=== PATIENT | male | born 1995 | race Caucasian/White ===

== ENCOUNTER 2018-11-24 10:55 | Day surgery (SDC) | payer OTHER ==
[~2018-11-24] VITALS: Ht 162.6 cm; Wt 70.0 kg
[2018-11-24] VITALS (12 sets, daily range): BP systolic 90–114; BP diastolic 49–66; PULSE 56–67; RESP 14–30; Ht 162.6 cm; Wt 70.0 kg
--- NOTE | 2018-11-24 08:37 | HPN ---
Date/Time of Note Date/Time of Note DATE: 11/24/18 TIME: 08:37 Interval H&P Admission Note Pt. seen H&P reviewed: No system changes KIMO BECK MD Nov 24, 2018 08:37
[~2018-11-24 10:55] MED LIST: CEFAZOLIN 1 GM INJ ONE
--- NOTE | 2018-11-24 12:16 | PREAC ---
Date/Time of Note Date/Time of Note DATE: 11/24/18 TIME: 12:14 Anesthesia Eval and Record Evaluation Time Pre-Procedure Interview DATE: 11/24/18 TIME: 12:14 Age 23 Sex male NPO: 8 hrs Preoperative diagnosis right scrotal/genital abnormality Planned procedure revision and repair right orchiopexy Past Medical History Past Medical History: None Surgery & Anesthesia Issues No known issue Meds Anticoagulation: No Beta Saima within 24 hr: No Reason Beta Saima not given: Pt. not on B-Saima No Active Prescriptions or Reported Meds Meds reviewed: Yes Allergies Coded Allergies: No Known Allergy (Unverified , 11/24/18) Allergies Reviewed: Yes Labs/Studies Labs Reviewed: Reviewed by anesthesiologist test: N/A Pre-procedure Exam Last vitals Vital Signs Date Temp Pulse Resp B/P (MAP) Pulse Ox O2 O2 Flow FiO2 Time Delivery Rate 11/24/18 98.7 67 14 114/65 97 Room Air 11:29 (81) Airway: Adequate mouth opening, Adequate thyromental dist Mallampati: Mallampati I Teeth: Normal Lung: Normal Heart: Normal ASA Physical Status ASA physical status: 1 Emergency: None Planned Anesthetic General/MAC: LMA Planned Pain Management Parenteral pain med Pre-operative Attestations Prior to commencing anesthesia and surgery, the patient was re-evaluated, there was verification of: *The patient's identity *The results of appropriate recent lab work and preoperative vital signs *The above evaluation not changing prior to induction *Anesthetic plan, risk benefits, alternative and complications discussed with patient/family; questions answered; patient/family understands, accepts and wishes to proceed. KEZIA ROMERO Nov 24, 2018 12:16
[2018-11-24] MEDS ORDERED: BUPIVACAINE 0.25% (MPF) 30 ML INJ ONE (12:21)
[2018-11-24] MEDS ORDERED: PROPOFOL 20 ML ONE (12:34)
[2018-11-24] MEDS ORDERED: ROCURONIUM 50 MG INJ ONE (12:38)
[2018-11-24] MEDS ORDERED: BUPIVACAINE 0.5% (SDV) 30 ML INJ ONE (12:42)
[2018-11-24] MEDS ORDERED: NEOMYC/POLYMYX/BACIT 30 GM OINT ONE (13:13)
[2018-11-24] MEDS ORDERED: DEXAMETHASONE 4 MG/ML 5 ML INJ ONE (13:18)
[2018-11-24] MEDS ORDERED: ONDANSETRON 4 MG INJ ONE (13:19)
[2018-11-24] MEDS ORDERED: NEOSTIGMINE 3 MG/3 ML SYRINGE ONE (13:25)
[2018-11-24] MEDS ORDERED: GLYCOPYRROLATE 0.4 MG INJ ONE (13:25)
--- NOTE | 2018-11-24 13:40 | PAC ---
Date/Time of Note Date/Time of Note DATE: 11/24/18 TIME: 13:39 Post-Anesthesia Notes Post-Anesthesia Note Last documented vital signs Vital Signs Date Temp Pulse Resp B/P (MAP) Pulse Ox O2 O2 Flow FiO2 Time Delivery Rate 11/24/18 99.3 78 105/62 98 13:37 11/24/18 67 14 114/65 97 Room Air 11:29 (81) Activity: WNL Respiratory function: WNL Cardiovascular function: WNL Mental status: Baseline Pain reasonably controlled: Yes Hydration appropriate: Yes Nausea/Vomiting absent: Yes KEZIA ROMERO Nov 24, 2018 13:40
--- NOTE | 2018-11-24 13:43 | OPR ---
Date/Time of Note Date/Time of Note DATE: 11/24/18 TIME: 13:34 Operative Report Procedure Date: Nov 24, 2018 Preoperative Diagnosis Status post right orchiopexy at age 10. The wound did not heal well. He has a 2-3 cm area where the testicle is exposed and not covered by scrotal skin Postoperative Diagnosis Same Operation/Procedure Performed Repair and revision of right orchiopexy Surgeon see signature line Hospitalist Nocturnist Physician bicycle service technician Anesthesia Type: general Anesthesiologist: KEZIA ROMERO Estimated Blood Loss: 0 - 10 ml's Transfusion none Specimen None Grafts/Implants none Complications none Pt Condition Post Procedure: stable Disposition: PACU Indications Exposed right testicle without scrotal skin covering secondary to right orchiope xy at age 10. Procedure Description The patient was brought to the operating room and given general anesthesia. Timeout was done and the patient was identified by his name, the procedure and the side of the procedure. He was given 2 g of Ancef IV at the start of the procedure. The genital area ,upper thighs and lower abdomen were all prepped and draped in the usual sterile manner. The area where the testicle was exposed had also a skin bridge that had to be opened and then electrocoagulated. I then dissected the scrotal skin of the testicle and went all around the exposed area. Care was taken not to cut into the testicle itself. I stayed subcutaneous and had good clearing of all the attachments and edges. After all of that I did excise the edges of the scrotal skin to freshen the edges. Then I approximated the subcutaneous tissue using 4-0 Vicryl interrupted sutures and that did cover the testicle as a first layer. Then I approximated the scrotal skin with 4-0 Vicryl interrupted sutures as well and that constituted a second layer covering the testicle. I did inject half percent Marcaine around the incision for local analgesia. The incision which at the end measured about 5 cm was covered with triple antibiotic ointment and a piece of Telfa. A fluff dressing was put on the top of that and that was held in place with a scrotal support. The patient tolerated the procedure well and was transferred to the recovery room in a stable and satisfactory condition. KIMO BECK MD Nov 24, 2018 13:43
[2018-11-24] MEDS ORDERED: MEPERIDINE 25 MG INJ IV PRN (14:00)
[2018-11-24] MEDS ORDERED: HYDROCODONE/APAP (5/325) TAB PO PRN (14:00)
[2018-11-24] MEDS ORDERED: LABETALOL HCL 20MG INJ IV PRN (14:00)
[2018-11-24] MEDS ORDERED: FENTAnyl 50 MCG/ML VIAL IV PRN ×3 (14:00)
[2018-11-24] MEDS ORDERED: ONDANSETRON 4 MG INJ IV PRN (14:00)
[2018-11-24] MEDS ORDERED: HYDROmorphONE 1 MG/5 ML IV SYRINGE IV PRN ×3 (14:00)
[2018-11-24] MEDS ORDERED: ALBUTEROL 0.083% (NEB) 2.5 MG/3 ML AMP HHN PRN (14:00)
[2018-11-24] MEDS ORDERED: KETOROLAC 30 MG INJ IV PRN (14:00)
[2018-11-24] MEDS ORDERED: OXYCODONE/ACETAMINOPHEN (5/325) TAB PO PRN ×2 (14:00)
[2018-11-24] MEDS ORDERED: DIPHENHYDRAMINE 50 MG INJ IV PRN (14:00)
[2018-11-24] MEDS ORDERED: METOCLOPRAMIDE 10 MG INJ IV PRN (14:00)
[2018-11-24] MEDS ORDERED: hydrALAzine 20 MG INJ IV PRN (14:00)
[2018-11-24] MEDS ORDERED: EPHEDrine SULFATE 50 MG/5 ML SYG IV PRN (14:00)
== END 2018-11-24 15:30 | disposition home or self-care (01) ==
LOC: SDS 10:55
PROVIDERS: ATTEND Urology
DX: N50.89 Other specified disorders of the male genital organs (principal)
CPT/HCPCS: 54640; J1100; J2405; J2710; J3010; Z7610; J0690